=== PATIENT | female | born 1985 | race African-American/Black ===

== ENCOUNTER 2022-03-07 04:21 | Day surgery (SDC) | payer BC, OTHER ==
[2022-03-03 14:41] VITALS: BMI 35.4
[2022-03-07] MEDS ORDERED: PROPOFOL 20 ML ONE (14:25)
[2022-03-07] MEDS ORDERED: MIDAZOLAM HCL 2 MG/2 ML SINGLE DOSE VIAL ONE (14:25)
[2022-03-07] MEDS ORDERED: GLYCOPYRROLATE 0.2 MG/1 ML VIAL ONE (14:25)
[2022-03-07] MEDS ORDERED: LIDOCAINE HCL/PF (2%) 40 MG/2 ML VIAL ONE (14:30)
[2022-03-07] MEDS ORDERED: ONDANSETRON 4 MG/2 ML VIAL ONE (15:09)
[2022-03-07] MEDS ORDERED: oxyCODONE HCL 5 MG TABLET PO PRN (15:19)
[2022-03-07] MEDS ORDERED: PROMETHAZINE HCL 25 MG/1 ML VIAL IVPUSH PRN (15:19)
[2022-03-07] MEDS ORDERED: ONDANSETRON 4 MG/2 ML VIAL IVPUSH PRN (15:19)
[2022-03-07] MEDS ORDERED: KETOROLAC TROMETHAMINE 30 MG/1 ML VIAL IVPUSH ONE (15:22)
[2022-03-07] MEDS ORDERED: LACTATED RINGERS SOLUTION 1,000 ML IV SCH (15:30)
[2022-03-07] MEDS ORDERED: KETOROLAC TROMETHAMINE 30 MG/1 ML VIAL ONE (15:56)
[2022-03-07 16:52] VITALS: TEMP 98
[2022-03-07 20:02] VITALS: BP 102/50; PULSE 80; RESP 20
== END 2022-03-07 17:40 | disposition home or self-care (01) ==
LOC: JASU-SURG 04:21
PROVIDERS: ATTEND Obstetrics & Gynecology
PROC: 0UC98ZZ Extirpation of Matter from Uterus, Via Natural or Artificial Opening Endoscopic (ICD-10-PCS; principal; 2022-03-07 12:45)
DX: T83.32XA Displacement of intrauterine contraceptive device, initial encounter (principal); E66.01 Morbid (severe) obesity due to excess calories
CPT/HCPCS: 81025; 88300-TC; 94760